=== PATIENT | male | born 1990 | race Two or more races ===

== ENCOUNTER 2016-06-06 22:25 | Emergency (ER) | payer MEDICAID ==
[~2016-06-06] VITALS: Ht 175.3 cm; Wt 62.6 kg
--- NOTE | 2016-06-06 23:07 | Emergency Room Report ---
History of Present Illness General Chief Complaint: General Complaint Source: EMS Present Illness HPI Is a 26-year-old male with unknown medical history. He presents with chief complaint of muscle spasm and altered mental status. He keeps stiffening up at work and complaining of pain. His work called 911. Patient is a poor historian. He refuse to talk much. Does complain of pain when touching. Denies any drugs or alcohol. Allergies: Coded Allergies: No Known Allergies (Unverified , 06/06/16) Patient History Past Medical History: see triage record, old chart reviewed Past Surgical History: none Pertinent Family History: none Social History: Denies: smoking Immunizations: other Reviewed Nursing Documentation: PMH: Agreed, PSxH: Agreed Nursing Documentation-PMH Past Medical History: No Stated History Review of Systems Constitutional: Reports: weakness All Other Systems: limited - Poor historian Physical Exam Vital Signs Date Time Temp Pulse Resp B/P Pulse Ox O2 Delivery O2 Flow Rate FiO2 06/06/16 22:24 105 16 108/68 100 Room Air vitals unremarkable Sp02 EP Interpretation: reviewed, normal General Appearance: well appearing, no apparent distress, other - Sleepy Head: normocephalic, atraumatic Eyes: bilateral eye EOMI, bilateral eye PERRL ENT: hearing grossly normal, normal pharynx Neck: full range of motion, supple, no meningismus Respiratory: chest non-tender, lungs clear, normal breath sounds Cardiovascular #1: regular rate, rhythm, no murmur Gastrointestinal: normal bowel sounds, non tender, no mass, no organomegaly, no bruit, non-distended Musculoskeletal: back normal, normal range of motion, other - Diffuse tenderness with palpation of his arms and legs. Psychiatric: mood/affect normal Skin: warm/dry Medical Decision Making Diagnostic Impression: Primary Impression: Encephalopathy acute Additional Impressions: Amphetamine abuse Acute renal failure (ARF) Qualified Codes: N17.9 - Acute kidney failure, unspecified ER Course Patient appear to be confused there is no focal deficit. 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 He tell me that she did that he had a seizure. He was stiffen and was shaky. He was unresponsive. There was no incontinence of bowel or urine. Otherwise she does not know much of anything else from him. His labs are significant for renal failure. He has also multiple drugs. We'll get a CT to rule out bleed. CT scan was negative. He is more awake and able to walk to the bathroom problem. Creatinine is much improve. We'll discharge home. Lab Results Impression last with acute renal failure Rhythm Strip Diag. Results EP Interpretation: yes Rate: 80 Rhythm: NSR, no PVC's, no ectopy CT/MRI/US Diagnostic Results CT/MRI/US Diagnostic Results : Imaging Test Ordered: CT head Impression read by radiologist. Negative Last Vital Signs Date Time Temp Pulse Resp B/P Pulse Ox O2 Delivery O2 Flow Rate FiO2 06/06/16 22:24 105 16 108/68 100 Room Air Status: improved Disposition: HOME, SELF-CARE Condition: Stable Additional Instructions: abstain from drugs and alcohol. Followup with your Dr. in 2 to 3 days. Return if worse. MJ AUGUSTINE M.D. Jun 06, 2016 23:07
[2016-06-06 23:13] VITALS: BP 88/60
[2016-06-06 23:23] LABS: MEAN CORPUSCULAR HEMOGLOBIN 33.7 PG (27.0-31.0); MEAN CORPUSCULAR HGB CONC 34.8 G/DL (32.0-36.0); MEAN CORPUSCULAR VOLUME 97 FL (80-99); MEAN PLATELET VOLUME 6.6 FL (6.5-10.1); PLATELET COUNT 350 K/UL (150-450); RED BLOOD COUNT 5.37 M/UL (4.70-6.10); RED CELL DISTRIBUTION WIDTH 12.2 % (11.6-14.8); WHITE BLOOD COUNT 14.4 K/UL (4.8-10.8)
[2016-06-06 23:24] LABS: APPEARANCE,URINE CLEAR; KETONES,URINE 2+ (NEGATIVE); LEUKOCYTE ESTERASE ,URINE NEGATIVE (NEGATIVE); NITRITE,URINE NEGATIVE (NEGATIVE); PH,URINE 6 (4.5-8.0); PROTEIN,URINE 2+ (NEGATIVE); UROBILINOGEN,URINE NORMAL MG/DL (0.0-1.0)
[2016-06-06 23:56] LABS: RBC,URINE 0 /HPF (0 - 0); SQUAMOUS EPITHELIAL CELL,UR FEW /LPF (NONE/OCC); WBC,URINE 0-2 /HPF (0 - 0)
[2016-06-07] LABS: CALCIUM 10.9 mg/dL (8.6-10.2); CREATININE 3.4 mg/dL (0.7-1.2); POTASSIUM 4.9 mEQ/L (3.4-4.9)
[2016-06-07 02:30] VITALS: BP 106/64
[2016-06-07 03:18] VITALS: BP 94/57
[2016-06-07 05:07] VITALS: BP 94/52
[2016-06-07 05:17] LABS: CALCIUM 7.7 mg/dL (8.6-10.2); CREATININE 1.6 mg/dL (0.7-1.2); GLOMERULAR FILTRATION RATE 52.5 mL/min (>60); POTASSIUM 4.3 mEQ/L (3.4-4.9)
[2016-06-07 06:30] VITALS: BP 101/50
[2016-06-07 06:50] VITALS: BP 101/50
--- NOTE | 2016-06-07 08:37 | Diagnostic Imaging Report ---
Indications: Altered mental status Technique: Continuous helical CT imaging of the brain was performed with automatic exposure control on a Siemens sensation [address] scanner. Axial and coronal images were reconstructed at 5 mm slice thickness and interval. CTDI volume(s): 70 mGy Total DLP: 1305 mGy-cm Findings: Comparison: None. Intracranial anatomy is unremarkable. No evidence of mass or hemorrhage, other attenuation abnormality, mass effect, midline shift, hydrocephalus or increased intracranial pressure. Bone window images are unremarkable. Mild mucoperiosteal thickening bilateral ethmoid sinuses. Remainder visualized paranasal sinuses and mastoid air cells are clear. IMPRESSION: Mild sinus disease Otherwise negative noncontrast CT scan of the brain . This correlates with [facility] preliminary report. The CT scanner at [facility] is accredited by the [employer] and the scans are performed using protocols designed to limit radiation exposure to as low as reasonably achievable to attain images of sufficient resolution adequate for diagnostic evaluation.
== END 2016-06-07 06:50 | disposition home or self-care (01) ==
LOC: EDBD 22:25 → EMR 23:01
DX: N17.9 Acute kidney failure, unspecified (principal); G93.40 Encephalopathy, unspecified; F15.10 Other stimulant abuse, uncomplicated; M62.838 Other muscle spasm
CPT/HCPCS: 36415; 70450; 80048; 80300; 81001; 82550; 85025; 96360; 96361